=== PATIENT | female | born 1980 | race Caucasian/White ===

== ENCOUNTER 2019-09-21 14:30 | Outpatient (RCR) | payer BC ==
[~2019-09-21 14:30] MED LIST: BCP TD; NORCO 325 MG-51 TAB PO
== END 2019-11-22 | disposition home or self-care (01) ==
LOC: WSC
DX: M75.81 Other shoulder lesions, right shoulder (principal)

== ENCOUNTER 2020-05-20 10:53 | Outpatient (RCR) | payer BC | END 2020-05-20 15:05 | disposition still patient (30) | LOC: WSC 10:53 | DX: Z96.611 Presence of right artificial shoulder joint (principal) ==

== ENCOUNTER → 2020-07-11 | Outpatient (RCR) | payer BC | END | disposition home or self-care (01) | LOC: WSC | DX: Z01.818 Encounter for other preprocedural examination (principal) ==

== ENCOUNTER 2020-09-06 15:30 | Outpatient (RCR) | payer BC | END 2020-10-11 | disposition home or self-care (01) | LOC: WSPT | DX: Z01.818 Encounter for other preprocedural examination (principal); Z98.890 Other specified postprocedural states ==

== ENCOUNTER → 2024-02-04 | Outpatient (CLI) | payer BC | LOC: MC.RAD 07:59 | DX: Z12.31 Encounter for screening mammogram for malignant neoplasm of breast (principal) ==